=== PATIENT | male | born 1955 | race African-American/Black ===

== ENCOUNTER 2016-12-22 12:31 | Emergency (ER) | payer OTHER ==
[~2016-12-22] VITALS: Ht 170.2 cm; Wt 118.8 kg
[~2016-12-22 12:31] MED LIST: ARTHROTEC 751 TABLET PO; CLINDAMYCIN; CLONAZEPAM0.5 MG PO; COLACE100 MG PO; FLEXERIL5 MG PO; FOLIC ACID1 MG PO; GABAPENTIN300 MG PO; HUMIRA; HUMIRA20 MG/0.4 SQ; HUMIRA40 MG/0.1 SC; HYDROCHLOROTHIA25 MG PO; LEXAPRO10 MG PO; METHOTREXA25 MG/1 M2 SC; METOPROLOL; METOPROLOL TART50 MG PO; PERCOCET 5/31 TABLET PO; PREVACID; PREVACID30 MG PO; Percocet 5/325,Endoc PO; VITAMIN D50000 UNI2 PO; ZESTRIL,PRINIVI20 MG PO; ZOLPIDEM TARTRA10 MG PO
[2016-12-22] MEDS ORDERED: NORCO 5/3251 TABLET PO (14:05)
[2016-12-22 14:13] VITALS: BP 00/00
== END 2016-12-22 14:18 | disposition home or self-care (01) ==
LOC: EME 12:31
DX: S80.02XA Contusion of left knee, initial encounter (principal); W10.8XXA Fall (on) (from) other stairs and steps, initial encounter; Y92.242 Post office as the place of occurrence of the external cause; E78.5 Hyperlipidemia, unspecified; I10 Essential (primary) hypertension; K21.9 Gastro-esophageal reflux disease without esophagitis; Z96.643 Presence of artificial hip joint, bilateral
CPT/HCPCS: 73564; 99281; 99283

== ENCOUNTER 2016-12-31 09:29 | Emergency (ER) | payer OTHER ==
[~2016-12-31] VITALS: Ht 170.2 cm; Wt 117.4 kg
[~2016-12-31 09:29] MED LIST changes: +NORCO 5/3251 TABLET PO
[2016-12-31 11:23] VITALS: BP 150/75
== END 2016-12-31 11:24 | disposition home or self-care (01) ==
LOC: EME 09:29
PROC: 0H96XZZ Drainage of Back Skin, External Approach (ICD-10-PCS; principal; 2016-12-31)
DX: L02.212 Cutaneous abscess of back [any part, except buttock and flank] (principal)
CPT/HCPCS: 99281; 99283

== ENCOUNTER 2018-07-17 13:48 | Inpatient (IN) | payer OTHER ==
[~2018-07-17] VITALS: Ht 170.2 cm; Wt 104.5 kg
[2018-07-17 14:23] LABS: HEMATOCRIT 38.2 % (38.0-50.0); MCH 28.8 PG (29.0-34.0); MCV 84.7 FL (86-99); PLATELET COUNT 151 K/uL (156-360); RED BLOOD COUNT 4.51 M/uL (4.00-5.50)
[2018-07-17 14:35] LABS: CHLORIDE 112 mEq/L (99-109); POTASSIUM 4.3 mEq/L (3.7-5.4); SODIUM 142 mEq/L (136-147)
[2018-07-17 14:37] LABS: GLUCOSE 116 mg/dL (70-99)
[2018-07-17 14:41] LABS: CREATININE 1.7 mg/dL (0.6-1.3); GFR ESTIMATE (CALCULATED) 53 mL/min/ (58.99-99999)
[2018-07-17 14:42] LABS: UREA NITROGEN (BUN) 24 mg/dL (9-23)
[2018-07-17 14:44] LABS: TROP-I INTERPRETATION NEGATIVE; TROPONIN-I 0.19 ng/mL (0.0-0.30)
[2018-07-17 14:45] LABS: INTER. NORMALIZED RATIO 1.2
[2018-07-17 14:48] LABS: AMYLASE 37 IU/L (1-118); PTT 25.5 SEC (25-37)
[2018-07-17 14:50] LABS: BASOPHIL (%) 0.7 % (0-1); BASOPHIL COUNT 0.1 K/uL (0-0.1); EOSINOPHIL (%) 0.3 % (0-5); IMMATURE GRANULOCYTE (%) 0.3 % (0.0-0.7); LYMPHOCYTE (%) 28.4 % (15-42); MONOCYTE (%) 5.4 % (3-12); MONOCYTE COUNT 0.6 K/uL (0-0.8); NEUTROPHIL (%) 64.9 % (45-76); NEUTROPHIL COUNT 6.8 K/uL (1.8-6.4)
[2018-07-17 14:53] LABS: SERUM ETHYL ALCOHOL < 10 mg/dL
[2018-07-17] MEDS ORDERED: LISINOPRIL40 MG PO (14:54)
[2018-07-17] MEDS ORDERED: ESCITALOPRAM OX20 MG PO (14:55)
[2018-07-17] MEDS ORDERED: ACETAMINOPHEN-1 EAC1 PO (14:55)
[2018-07-17 14:57] LABS: LIPASE 19 U/L (1.0-51.0)
[2018-07-17 15:39] LABS: APPEARANCE CLEAR ((CLEAR)); BILIRUBIN NEGATIVE; BLOOD NEGATIVE; COLOR YELLOW ((YELLOW)); GLUCOSE (STRIP) NEGATIVE; KETONES NEGATIVE; LEUKOCYTES NEGATIVE; NITRITE NEGATIVE; PROTEIN (STRIP) NEGATIVE; SPECIFIC GRAVITY 1.015 (1.000-1.030); UCUL ADDED? NO; UROBILINOGEN 0.2 MG/DL (0.2-1.0)
[2018-07-17 15:55] LABS: PHENCYCLIDINE NEGATIVE (25 ng/mL); THC CANNABINOIDS NEGATIVE (50 ng/mL)
[2018-07-17 15:56] LABS: AMPHETAMINE NEGATIVE (500 ng/mL); BARBITURATES NEGATIVE (200 ng/mL); BENZODIAZEPINES NEGATIVE (150 ng/mL); BUPRENORPHINE NEGATIVE (10 ng/mL); COCAINE PRESUMPTIVE POSITIVE (150 ng/mL); METHADONE NEGATIVE (200 ng/mL); METHAMPHETAMINE NEGATIVE (500 ng/mL); OPIATES (MORPHINE) NEGATIVE (100 ng/mL); OXYCODONE NEGATIVE (100 ng/mL); PROPOXYPHENE NEGATIVE (300 ng/mL); TRICYCLIC ANTIDEPRESSANTS NEGATIVE (300 ng/mL)
[2018-07-17 19:47] VITALS: BP 128/67
[2018-07-17 20:01] VITALS: BP 124/77
[2018-07-17 22:02] VITALS: BP 146/68
[2018-07-17 23:01] VITALS: BP 133/90
[2018-07-18] VITALS (16 sets, daily range): BP systolic 108–155; BP diastolic 61–95
[2018-07-18 06:27] LABS: HEMATOCRIT 38.8 % (38.0-50.0); HEMOGLOBIN 12.8 G/DL (12.5-16.6); MCH 28.5 PG (29.0-34.0); MCV 86.4 FL (86-99); PLATELET COUNT 155 K/uL (156-360); RBC DIS.WIDTH-CV 14.3 % (11.8-14.6); RBC DIS.WIDTH-SD 44.6 % (39-53); RED BLOOD COUNT 4.49 M/uL (4.00-5.50); WHITE BLOOD COUNT 10.1 K/uL (4.1-10.2)
[2018-07-19 02:25] LABS: INTER. NORMALIZED RATIO 1.1
[2018-07-19 02:28] LABS: PTT 78.5 SEC (25-37)
[2018-07-19 03:36] VITALS: BP 129/83
[2018-07-19 07:25] VITALS: BP 124/71
[2018-07-19 08:16] LABS: INTER. NORMALIZED RATIO 1.1
[2018-07-19 08:19] LABS: PTT 92.3 SEC (25-37)
[2018-07-19 08:42] LABS: CHLORIDE 109 MEQ/L (99-109); GFR ESTIMATE (CALCULATED) > 59 mL/min/ (58.99-99999); GLUCOSE 95 mg/dL (70-99); POTASSIUM 4.2 MEQ/L (3.7-5.4); SODIUM 142 MEQ/L (136-147); UREA NITROGEN (BUN) 15 mg/dL (9-23)
[2018-07-19 08:55] LABS: CREATININE 1.2 MG/DL (0.6-1.3)
[2018-07-19 11:50] VITALS: BP 144/75
[2018-07-19 15:32] VITALS: BP 128/80
[2018-07-19 19:49] VITALS: BP 161/87
[2018-07-20 00:12] VITALS: BP 163/85
[2018-07-20 03:56] VITALS: BP 151/75
[2018-07-20 05:49] LABS: HEMATOCRIT 37.8 % (38.0-50.0); HEMOGLOBIN 12.4 G/DL (12.5-16.6); MCH 28.1 PG (29.0-34.0); MCHC 32.8 G/DL (30.0-36.0); MCV 85.7 FL (86-99); PLATELET COUNT 160 K/uL (156-360); RBC DIS.WIDTH-SD 43.4 % (39-53); RED BLOOD COUNT 4.41 M/uL (4.00-5.50)
[2018-07-20 05:55] LABS: INTER. NORMALIZED RATIO 1.1
[2018-07-20 05:58] LABS: PTT 57.7 SEC (25-37)
[2018-07-20 07:57] VITALS: BP 159/95
[2018-07-20 12:05] VITALS: BP 138/77
[2018-07-20] MEDS ORDERED: XARELTO15 MG PO (13:38)
== END 2018-07-20 15:05 | disposition home or self-care (01) | DRG 176 ==
LOC: EME 13:48 → 5EAST 19:08 → EDOF 19:08 → 4WEST 19:08 → ENRESERV 19:09 → 4WEST 19:41 → ENRESERV 07-18 13:22 → 5EAST 07-18 15:47
PROVIDERS: Emergency Medicine; Hospitalist; Internal Medicine Critical Care Medicine; Student in an Organized Health Care Education/Training Program
DX: I26.92 Saddle embolus of pulmonary artery without acute cor pulmonale (principal); E87.6 Hypokalemia; K21.9 Gastro-esophageal reflux disease without esophagitis; I10 Essential (primary) hypertension; F32.9 Major depressive disorder, single episode, unspecified; E78.5 Hyperlipidemia, unspecified; G89.29 Other chronic pain; M54.5 Low back pain; Z96.643 Presence of artificial hip joint, bilateral; E66.9 Obesity, unspecified; R79.89 Other specified abnormal findings of blood chemistry; Z68.36 Body mass index [BMI] 36.0-36.9, adult
CPT/HCPCS: 71046; 71275; 80047; 80048; 80048 91; 81003; 82150; 82948; 83690; 84484; 84999; 85025; 85027; 85610; 85730; 86850; 86900; 86901; 87641; 93005; 93306; 94799; 99281; 99285; G0480; J7120